=== PATIENT | female | born 1965 | race African-American/Black ===

== ENCOUNTER 2018-07-16 21:11 | Observation (INO) | payer SELFPAY ==
[~2018-07-16] VITALS: Ht 165.1 cm; Wt 74.1 kg
[~2018-07-16 21:11] MED LIST: ADLT ASA LOW81 MG PO; ADVIL200 MG PO; ALEVE220 M2 PO; ASPIRIN LOW DOS81 MG PO; ASPIRIN81 MG OR; BACTRIM DS1 TAB PO; ERYTHROMYCIN250 MG PO; LEVAQUIN500 MG PO; LORTAB 10 PO; METO25TAB PO; PROPYLTHIOUR50 MG OR; VICODIN1 TAB PO
[2018-07-16] MEDS ORDERED: LOPRESSOR50 M2 PO (21:28)
[2018-07-16] MEDS ORDERED: LOPRESSOR25 M1 PO (21:29)
--- NOTE | 2018-07-16 21:35 | NUR ---
PATIENT TO ROOM 9 VIA WHEELCHAIR. UNDRESSED INTO A GOWN. LOYDA ALCARAZ.
--- NOTE | 2018-07-16 22:12 | NUR ---
PT GIVEN BOTTLE OF WATER. PER . RESTING
[2018-07-16 22:23] LABS: HEMATOCRIT 33.1 % (37.0-47.0); HEMOGLOBIN 11.2 g/dl (12.0-16.0); IMMATURE GRANULOCYTES 0.5 % (0.0-5.0); MEAN CELL VOLUME 82.3 fL CALC (80.0-100.0); MEAN CORPUSCULAR HGB 27.9 pG CALC (26.0-32.0); MEAN CORPUSCULAR HGB CONC 33.8 g/L CALC (32.0-36.0); NEUT# 4.32 thou/uL (2.00-7.15); RED BLOOD COUNT 4.02 mill/uL (4.20-5.60); RED CELL DISTRI WIDTH 11.6 % (11.5-15.5)
[2018-07-16 22:25] LABS: URINE BILIRUBIN - DIPSTICK NEGATIVE (NEGATIVE); URINE BLOOD DIPSTICK NEGATIVE (NEGATIVE); URINE COLOR YELLOW; URINE GLUCOSE - DIPSTICK NEGATIVE (NEGATIVE); URINE KETONE NEGATIVE (NEGATIVE); URINE NITRITE - DIPSTICK NEGATIVE (Negative); URINE PROTEIN - DIPSTICK NEGATIVE (NEG-TRACE); URINE UROBILINOGEN - DIPSTICK 0.2 E.U./dL (0.2)
[2018-07-16 22:28] LABS: URINE CLARITY CLEAR; URINE LEUK ESTERASE SMALL (NEGATIVE)
[2018-07-16 22:29] LABS: ALBUMIN 4.9 g/dL (3.2-5.0); ALKALINE PHOSPHATASE 90 u/l (38-126); ANION GAP 17 (6-22 (CALC)); BILIRUBIN, TOTAL 0.5 mg/dL (0.0-1.4); BUN 22 mg/dL (7-17); BUN/CREATININE RATIO 27 (12-20 (CALC)); CARBON DIOXIDE 31 mmol/l (22-30); CHLORIDE 90 mmol/l (95-108); CREATININE 0.8 mg/dL (0.5-1.0); GFR > 60 ML/MIN (>=60 (CALC)); GFR FOR AFR.AMER. > 60 ML/MIN (>=60 (CALC)); SGOT/AST 34 u/l (14-36); SGPT/ALT 34 u/l (9-52); SODIUM 135 mmol/l (137-146); TOTAL PROTEIN 9.4 g/dL (6.3-8.2)
--- NOTE | 2018-07-16 22:30 | NUR ---
PT RESTING. FEELS MUCH BETTER. VSS. PWD. RESP EASY REG. CM NSR. POSITIVE SYSTOLIC MURMUR. BBS CLEAR. ABD SOFT/NON TENDER. NO EDEMA.
[2018-07-16 22:32] LABS: BARBITURATES NEGATIVE (NEGATIVE); COCAINE NEGATIVE (NEGATIVE); METHADONE NEGATIVE (NEGATIVE); OXCYCODONE NEGATIVE (NEGATIVE); POTASSIUM 2.6 mmol/l (3.5-5.1); TETRAHYDROCANNABIONOL NEGATIVE (NEGATIVE); TRICYLIC ANTIDEPRESSANTS NEGATIVE (NEGATIVE)
[2018-07-16 22:37] LABS: URINE SQUAMOUS EPITHELIAL CELL FEW EPI/hpf (0-FEW); URINE WBC 0-2 WBC/hpf (0-5)
[2018-07-16 22:41] LABS: MYOGLOBIN 36 ng/mL (0 - 62)
--- NOTE | 2018-07-16 23:50 | NUR ---
REPORT TO [facility]
--- NOTE | 2018-07-17 00:01 | NUR ---
TO FLOOR VIA STRETCHER ON MONITOR. PAIN IS MUCH BETTER. PT NEEDS NS WITH 40 KCL...NOT AVAILABLE IN ER. STOPPED AT PRE-OP EN ROUTE TO FLOOR AND TOOK POTASIUM IV WITH ME. ARRIVED TO FLOOR WITHOUT INCIDENT.
[2018-07-17 00:10] VITALS: BP 109/67
--- NOTE | 2018-07-17 00:10 | NUR ---
PT ARRIVED TO FLOOR VIA STRETCHER WITH ER NURSE. PT AMBULATED TO SCALE, THEN TO BED. VITALS OBTAINED BY RETIREMENT SPECIALIST. PT ORIENTED TO ROOM AND CALL LIGHT SYSTEM. RESP EVEN AND UNLABORED. TELE ON. LUNGS CLEAR BILAT. ABD SOFT, ACTIVE BOWEL SOUNDS. PT REPORTS LAST BM WAS 07/16/18. PEDAL PULSES PALPATED BILAT. IV LAC PATENT; NO REDNESS OR EDEMA NOTED. PT DENIES PAIN. SANDWICH PROVIDED TO PT PER PT REQUEST. PT ENCOURAGED TO CALL FOR ASSISTANCE WITH AMBULATING. FREQUENT ROUNDS MADE. CALL LIGHT WITHIN REACH.
--- NOTE | 2018-07-17 04:00 | NUR ---
PT SLEEPING WITH EYES CLOSED. ASSESSMENT UNCHANGED. RESP EVEN AND UNLABORED, NO DISTRESS NOTED. TELE ON. IV PATENT; NO REDNESS OR EDEMA NOTED. CALL LIGHT WITHIN REACH.
[2018-07-17 05:50] VITALS: BP 106/67
[2018-07-17 06:42] LABS: CHOLESTEROL HDL RATIO 2.8 (<4.4 (CALC))
--- NOTE | 2018-07-17 07:29 | NUR ---
BEDSIDE REPORT RECEIVED BY KAEDN. PT STATED THAT WHEN SHE GOT UP TO THE BATHROOM SHE FELT DIZZY. VS OBTAIN. SAFETY PRECAUTIONS REINFORCED AND CALL LIGHT IN REACH. PT DENIES ANY OTHER NEEDS AT THIS TIME.
[2018-07-17 07:31] VITALS: BP 107/64
[2018-07-17 07:42] LABS: ANION GAP 13 (6-22 (CALC)); BUN 24 mg/dL (7-17); BUN/CREATININE RATIO 28 (12-20 (CALC)); CARBON DIOXIDE 28 mmol/l (22-30); CHLORIDE 97 mmol/l (95-108); CREATININE 0.8 mg/dL (0.5-1.0); GFR > 60 ML/MIN (>=60 (CALC)); GFR FOR AFR.AMER. > 60 ML/MIN (>=60 (CALC)); SODIUM 135 mmol/l (137-146)
[2018-07-17 07:45] LABS: POTASSIUM 3.3 mmol/l (3.5-5.1)
--- NOTE | 2018-07-17 08:00 | NUR ---
ASSESSMENT DONE TELE IN PLACE. RESPS EVEN AND UNLABORED. A&O X3 BUT FORGETFUL AT TIMES. PT DENIES PAIN AT THIS TIME. [id number] AT 125ML/HR INFUSING WELL. PT DENIES NEEDS AT THIS TIME. CALL LIGHT IN REACH.
--- NOTE | 2018-07-17 12:00 | NUR ---
PT IS SITTING IN THE RECLINER WITH NO S/S OF DISTRESS NOTED. PT DENIES NEEDS AT THIS TIME. CALL LIGHT IN REACH.
[2018-07-17 12:47] VITALS: BP 96/61
[2018-07-17] MEDS ORDERED: MAXZIDE-2537.5 MG/TA PO (14:24)
[2018-07-17] MEDS ORDERED: AMLODIPINE5 MG PO (14:25)
[2018-07-17] MEDS ORDERED: MOTRIN400 MG PO (14:28)
[2018-07-17 15:30] VITALS: BP 124/66
--- NOTE | 2018-07-17 16:04 | NUR ---
PT IS RESTING WITH NO S/S OF DISTRESS NOTED. PT DENIES NEEDS AT THIS TIME. TELE IN PLACE. CALL LIGHT IN REACH.
[2018-07-17] MEDS ORDERED: NAPROXEN500 MG PO (16:39)
--- NOTE | 2018-07-17 18:15 | NUR ---
Discharge instructions given. Patient verbalizes understanding of same. Discharged in stable condition via Wheelchair to Home with family. All belongings sent with pt.
== END 2018-07-17 18:15 | disposition home or self-care (01) | DRG 313 ==
LOC: ED 21:11 → ED-I 22:20 → ED 23:10 → MS2 23:11
PROVIDERS: Emergency Medicine; ADMIT Internal Medicine; ATTEND Internal Medicine
DX: R07.89 Other chest pain (principal); E87.6 Hypokalemia; I10 Essential (primary) hypertension; E03.9 Hypothyroidism, unspecified; I34.1 Nonrheumatic mitral (valve) prolapse; M25.50 Pain in unspecified joint; D64.9 Anemia, unspecified; G89.29 Other chronic pain; Z91.81 History of falling
CPT/HCPCS: G0378

== ENCOUNTER → 2018-09-01 | Outpatient (REF) | payer SELFPAY ==
[~2018-09-01] MED LIST changes: +AMLODIPINE5 MG PO; +LOPRESSOR25 M1 PO; +LOPRESSOR50 M2 PO; +MAXZIDE-2537.5 MG/TA PO; +MOTRIN400 MG PO; +NAPROXEN500 MG PO
== END | disposition home or self-care (01) | DRG 307 ==
LOC: DI 18:33
PROVIDERS: ATTEND Physician Assistant
DX: I34.1 Nonrheumatic mitral (valve) prolapse (principal)

== ENCOUNTER 2019-09-16 13:01 | Emergency (ER) | payer SELFPAY ==
[~2019-09-16] VITALS: Ht 165.1 cm; Wt 90.0 kg
[2019-09-16] MEDS ORDERED: LASIX 20 MG TAB20 MG PO (13:18)
[2019-09-16] MEDS ORDERED: K-TABS10 MEQ PO (13:19)
[2019-09-16] MEDS ORDERED: CYCLOBENZAPR10 MG PO (13:24)
[2019-09-16 13:44] LABS: HEMATOCRIT 36.5 % (37.0-47.0); HEMOGLOBIN 11.6 g/dl (12.0-16.0); IMMATURE GRANULOCYTES 0.3 % (0.0-5.0); MEAN CELL VOLUME 85.1 fL CALC (80.0-100.0); MEAN CORPUSCULAR HGB CONC 31.8 g/L CALC (32.0-36.0); NEUT# 5.11 thou/uL (2.00-7.15); RED BLOOD COUNT 4.29 mill/uL (4.20-5.60)
[2019-09-16 14:03] LABS: ANION GAP 16 (6-22 (CALC)); BILIRUBIN, TOTAL 0.6 mg/dL (0.0-1.4); BUN 2 mg/dL (7-17); BUN/CREATININE RATIO 4 (12-20 (CALC)); CARBON DIOXIDE 25 mmol/l (22-30); CHLORIDE 93 mmol/l (95-108); CREATININE 0.6 mg/dL (0.5-1.0); GFR > 60 ML/MIN (>=60 (CALC)); GFR FOR AFR.AMER. > 60 ML/MIN (>=60 (CALC)); POTASSIUM 3.4 mmol/l (3.5-5.1); SODIUM 130 mmol/l (137-146); TOTAL PROTEIN 8.4 g/dL (6.3-8.2)
[2019-09-16 14:08] LABS: ALKALINE PHOSPHATASE 142 u/l (38-126); SGOT/AST 160 u/l (14-36)
[2019-09-16 14:15] LABS: MYOGLOBIN 27 ng/mL (0 - 62)
[2019-09-16 15:04] LABS: URINE BILIRUBIN - DIPSTICK NEGATIVE (NEGATIVE); URINE BLOOD DIPSTICK NEGATIVE (NEGATIVE); URINE COLOR YELLOW; URINE GLUCOSE - DIPSTICK NEGATIVE (NEGATIVE); URINE KETONE NEGATIVE (NEGATIVE); URINE LEUK ESTERASE NEGATIVE (NEGATIVE); URINE NITRITE - DIPSTICK NEGATIVE (Negative); URINE PH 5.5 (4.5-8.0); URINE PROTEIN - DIPSTICK NEGATIVE (NEG-TRACE); URINE SPECIFIC GRAVITY <=1.005; URINE UROBILINOGEN - DIPSTICK 0.2 E.U./dL (0.2)
[2019-09-16 15:36] VITALS: BP 103/61
== END 2019-09-16 15:36 | disposition home or self-care (01) | DRG 313 ==
LOC: ED 13:01
PROVIDERS: Family Medicine
DX: R07.9 Chest pain, unspecified (principal); I10 Essential (primary) hypertension; E11.9 Type 2 diabetes mellitus without complications; E03.9 Hypothyroidism, unspecified

== ENCOUNTER 2021-12-02 19:49 | Emergency (ER) | payer MEDICARE ==
[~2021-12-02 19:49] MED LIST changes: +CYCLOBENZAPR10 MG PO; +DICLOFENAC75 MG PO; +HYDROCO/APAP1 TA9 PO; +K-TABS10 MEQ PO; +LASIX 20 MG TAB20 MG PO; +NITROGLYCERIN0.4 MG SL; +TOPIRAMATE ER50 MG PO
[2021-12-03] MEDS ORDERED: TORADOL PO (12:17)
[2021-12-03] MEDS ORDERED: FLEXERIL5 M1 PO (12:17)
== END 2021-12-02 20:18 | disposition left against medical advice (07) ==
LOC: ED 19:49 → LWOBS 20:18
DX: Z53.21 Procedure and treatment not carried out due to patient leaving prior to being seen by health care provider (principal)

== ENCOUNTER 2021-12-03 10:55 | Emergency (ER) | payer MEDICARE ==
[~2021-12-03] VITALS: Ht 165.1 cm; Wt 100.0 kg
[2021-12-03] MEDS ORDERED: FLEXERIL5 M1 PO (12:17)
[2021-12-03] MEDS ORDERED: TORADOL PO (12:17)
[2021-12-03 12:26] VITALS: BP 120/57
== END 2021-12-03 12:25 | disposition home or self-care (01) ==
LOC: ED 10:55
DX: S39.012A Strain of muscle, fascia and tendon of lower back, initial encounter (principal); E11.9 Type 2 diabetes mellitus without complications; I10 Essential (primary) hypertension; E03.9 Hypothyroidism, unspecified; I34.1 Nonrheumatic mitral (valve) prolapse; W01.0XXA Fall on same level from slipping, tripping and stumbling without subsequent striking against object, initial encounter; Y92.512 Supermarket, store or market as the place of occurrence of the external cause; Y99.9 Unspecified external cause status

== ENCOUNTER 2022-11-19 17:24 | Emergency (ER) | payer MEDICARE ==
[~2022-11-19] VITALS: Ht 165.1 cm; Wt 83.6 kg
[~2022-11-19 17:24] MED LIST changes: +FLEXERIL5 M1 PO; +TORADOL PO
[2022-11-19 17:31] VITALS: BP 142/63
[2022-11-19] MEDS ORDERED: NORVASC5 M1 PO (17:36)
[2022-11-19] MEDS ORDERED: METOPROL TAR25 MG PO (17:37)
[2022-11-19] MEDS ORDERED: NAPROXEN500 MG PO (17:49)
[2022-11-19] MEDS ORDERED: TRAMADOL HYDROC50 M1 PO (17:49)
[2022-11-19] MEDS ORDERED: PENICILLN VK500 MG PO (17:49)
[2022-11-19 17:57] VITALS: BP 142/63
== END 2022-11-19 18:06 | disposition home or self-care (01) ==
LOC: ED 17:24
DX: K04.7 Periapical abscess without sinus (principal); S02.5XXA Fracture of tooth (traumatic), initial encounter for closed fracture; I10 Essential (primary) hypertension; E11.9 Type 2 diabetes mellitus without complications; E03.9 Hypothyroidism, unspecified; I34.1 Nonrheumatic mitral (valve) prolapse; X58.XXXA Exposure to other specified factors, initial encounter